=== PATIENT | female | born 1990 | race Caucasian/White ===

== ENCOUNTER 2021-12-23 18:31 | Emergency (ER) | payer OTHER ==
[~2021-12-23] VITALS: Ht 160 cm; Wt 113.4 kg
--- NOTE | 2021-12-23 18:40 | NUR ---
RECEVED PT 31 YRS FEMALE C/O SORE closed unable to swallow since last night
--- NOTE | 2021-12-23 18:55 | NUR ---
SEEN BY DR. LASHAE DOBBINS SOB COGHING OR fever
--- NOTE | 2021-12-23 19:07 | NUR ---
DEVANTE COOK SENT TO LAB
--- NOTE | 2021-12-23 19:15 | NUR ---
HAND OFF BEL REYES
--- NOTE | 2021-12-23 19:29 | NUR ---
RECEIVED REPORT FROM AMY CARDONA. PATIENT CAME WITH CC OF [facility]. AM SHIFT SWAB PATIENT ALREADY. PATIENT IS [id number]. ABLE TO MAKE NEEDS KNOWN. VITALS CHECKED.
[2021-12-23] MEDS ORDERED: IBUP-1957 PO (20:16)
--- NOTE | 2021-12-23 20:27 | NUR ---
Patient discharged to home in stable condition. Written and verbal after care instructions given. Patient verbalizes understanding of instruction.
[2021-12-23 20:28] VITALS: BP 148/75
== END 2021-12-23 20:28 | disposition home or self-care (01) ==
LOC: ER 18:34
DX: J02.8 Acute pharyngitis due to other specified organisms (principal); Z88.8 Allergy status to other drugs, medicaments and biological substances
CPT/HCPCS: 86403-TC; 87070-TC